=== PATIENT | female | born 1940 | race Asian ===

== ENCOUNTER 2016-09-11 05:24 | Outpatient (RCR) | payer MEDICARE ==
[~2016-09-11] VITALS: Ht 160 cm; Wt 60.3 kg
[2016-09-11] MEDS ORDERED: NS 550ML IV ONE (05:25)
[2016-09-11] MEDS ORDERED: Succinylcholine 20mg/ml 10ml vial ONE (05:25)
[2016-09-11] MEDS ORDERED: Methohexital Sodium Syr 100mg/10ml IVP ONE (05:25)
[2016-09-11] MEDS ORDERED: Glycopyrrolate 0.2mg/ml 1ml Vial ONE (05:25)
== END 2016-09-26 | disposition home or self-care (01) ==
LOC: ECT 05:24
DX: F33.2 Major depressive disorder, recurrent severe without psychotic features (principal); M81.0 Age-related osteoporosis without current pathological fracture; E78.00 Pure hypercholesterolemia, unspecified
CPT/HCPCS: 90870; J0330; J7040

== ENCOUNTER 2016-10-09 06:51 | Outpatient (RCR) | payer MEDICARE ==
[~2016-10-09] VITALS: Ht 160 cm; Wt 60.3 kg
[2016-10-09] MEDS ORDERED: Glycopyrrolate 0.2mg/ml 1ml Vial ONE (06:52)
[2016-10-09] MEDS ORDERED: Succinylcholine 20mg/ml 10ml vial ONE (06:52)
[2016-10-09] MEDS ORDERED: Methohexital Sodium Syr 100mg/10ml IVP ONE (06:52)
[2016-10-09] MEDS ORDERED: NS 550ML IV ONE (06:52)
[2016-10-09] MEDS ORDERED: Atropine Sulfate 0.4mg/ml inj IVP PRN (19:45)
== END 2016-10-24 | disposition home or self-care (01) ==
LOC: ECT 06:51
DX: F33.2 Major depressive disorder, recurrent severe without psychotic features (principal)
CPT/HCPCS: 90870; J0330; J7040

== ENCOUNTER 2016-11-08 07:06 | Outpatient (RCR) | payer MEDICARE ==
[~2016-11-08] VITALS: Ht 160 cm; Wt 60.3 kg
[2016-11-08] MEDS ORDERED: Succinylcholine 20mg/ml 10ml vial ONE (07:07)
[2016-11-08] MEDS ORDERED: NS 550ML IV ONE (07:07)
[2016-11-08] MEDS ORDERED: Methohexital Sodium Syr 100mg/10ml IVP ONE (07:07)
[2016-11-08] MEDS ORDERED: Glycopyrrolate 0.2mg/ml 1ml Vial ONE (07:07)
== END 2016-11-24 | disposition home or self-care (01) ==
LOC: ECT 07:06
DX: F33.2 Major depressive disorder, recurrent severe without psychotic features (principal)
CPT/HCPCS: 90870; J0330; J7040

== ENCOUNTER 2016-12-06 07:21 | Outpatient (RCR) | payer MEDICARE ==
[~2016-12-06] VITALS: Ht 160 cm; Wt 60.3 kg
[2016-12-06] MEDS ORDERED: Glycopyrrolate 0.2mg/ml 1ml Vial ONE (07:22)
[2016-12-06] MEDS ORDERED: Methohexital Sodium Syr 100mg/10ml IVP ONE (07:22)
[2016-12-06] MEDS ORDERED: NS 550ML IV ONE (07:22)
[2016-12-06] MEDS ORDERED: Succinylcholine 20mg/ml 10ml vial ONE (07:22)
[2016-12-06] MEDS ORDERED: Atropine Sulfate 0.4mg/ml inj IVP PRN (17:45)
== END 2016-12-24 | disposition home or self-care (01) ==
LOC: ECT 07:21
DX: F33.2 Major depressive disorder, recurrent severe without psychotic features (principal)
CPT/HCPCS: 90870; J0330; J7040

== ENCOUNTER 2017-01-08 06:30 | Outpatient (RCR) | payer MEDICARE ==
[~2017-01-08] VITALS: Ht 160 cm; Wt 60.3 kg
[2017-01-08] MEDS ORDERED: Glycopyrrolate 0.2mg/ml 1ml Vial ONE (06:31)
[2017-01-08] MEDS ORDERED: Methohexital Sodium Syr 100mg/10ml IVP ONE (06:31)
[2017-01-08] MEDS ORDERED: Succinylcholine 20mg/ml 10ml vial ONE (06:31)
[2017-01-08] MEDS ORDERED: NS 550ML IV ONE (06:31)
== END 2017-01-24 | disposition home or self-care (01) ==
LOC: ECT 06:30
DX: F33.2 Major depressive disorder, recurrent severe without psychotic features (principal)
CPT/HCPCS: 90870; J0330; J7040

== ENCOUNTER 2017-02-12 05:25 | Outpatient (RCR) | payer MEDICARE ==
[~2017-02-12] VITALS: Ht 160 cm; Wt 60.3 kg
[2017-02-12] MEDS ORDERED: Succinylcholine 20mg/ml 10ml vial ONE (05:26)
[2017-02-12] MEDS ORDERED: Glycopyrrolate 0.2mg/ml 1ml Vial ONE (05:26)
[2017-02-12] MEDS ORDERED: Methohexital Sodium Syr 100mg/10ml IVP ONE (05:26)
[2017-02-12] MEDS ORDERED: NS 550ML IV ONE (05:26)
== END 2017-02-23 | disposition home or self-care (01) ==
LOC: ECT 05:25
DX: F33.2 Major depressive disorder, recurrent severe without psychotic features (principal)
CPT/HCPCS: 90870; J0330; J7040